=== PATIENT | male | born 1970 | race Caucasian/White ===

== ENCOUNTER 2018-11-28 17:05 | Emergency (ER) | payer BC ==
[~2018-11-28] VITALS: Ht 175.3 cm; Wt 77.1 kg
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
--- NOTE | 2018-11-28 17:25 | NUR ---
KAREN DASILVA AT BEDSIDE
[2018-11-28] MEDS ORDERED: LORAZEPAM INJ 2 MG/ML VIAL IV ONE (18:00)
--- NOTE | 2018-11-28 18:02 | NUR ---
TECH AT BEDSIDE FOR ULNAR GUTTER
--- NOTE | 2018-11-28 18:17 | NUR ---
Patient discharged to home in stable condition. Written and verbal after care instructions given. Patient verbalizes understanding of instruction.
[2018-11-28 18:20] VITALS: BP 130/52
== END 2018-11-28 18:20 | disposition home or self-care (01) ==
LOC: ER 17:07
DX: S62.327A Displaced fracture of shaft of fifth metacarpal bone, left hand, initial encounter for closed fracture (principal); S80.12XA Contusion of left lower leg, initial encounter; V49.49XA Driver injured in collision with other motor vehicles in traffic accident, initial encounter; Y93.89 Activity, other specified; Y92.413 State road as the place of occurrence of the external cause; Y99.8 Other external cause status
CPT/HCPCS: 73130-TC